=== PATIENT | male | born 1945 | race African-American/Black ===

== ENCOUNTER → 2017-06-19 | Outpatient (CLI) | payer MEDICARE, MEDICAID ==
[~2017-06-19] MED LIST: BENA20TA77 GT; FOLI-43 PO; FURO40TA5 PO; SITA100T11 PO
[2017-06-19 11:38] LABS: HEMATOCRIT. 28.8 % (42.0-52.0); HEMOGLOBIN. 9.3 g/dL (14.0-18.0); MEAN CORPUSCULAR VOLUME 89.2 fL (80.0-94.0); MEAN PLATELET VOLUME 8.4 fl (7.4-10.4); PLATELET 217 x1000/uL (130-400); RED BLOOD CELL COUNT 3.22 mill/uL (4.7-6.1); RED CELL DISTRIBUTION WIDTH 15.8 % (11.6-14.6)
[2017-06-19 11:44] LABS: INR 1.1; PARTIAL THROMBOPLASTIN TIME 27.8 sec (23.4-31.0)
[2017-06-19 11:53] LABS: PLATELET ESTIMATE NORMAL
== END | disposition home or self-care (01) ==
LOC: LAB 11:11
PROVIDERS: ATTEND Internal Medicine
DX: R91.8 Other nonspecific abnormal finding of lung field (principal); K76.9 Liver disease, unspecified; R79.89 Other specified abnormal findings of blood chemistry
CPT/HCPCS: 36415; 85025; 85610; 85730

== ENCOUNTER 2017-06-25 09:30 | Day surgery (SDC) | payer MEDICARE, MEDICAID ==
[~2017-06-25] VITALS: Ht 170.2 cm; Wt 109.3 kg
[2017-06-25] VITALS (12 sets, daily range): BP systolic 115–158; BP diastolic 59–91
[2017-06-25] MEDS ORDERED: FENTANYL CITRATE/PF 50MCG/ML 2ML VIAL ONE (10:13)
[2017-06-25] MEDS ORDERED: SODIUM BICARBONATE 4% (2.4MEQ) 5ML VIAL IV ONE (10:28)
[2017-06-25] MEDS ORDERED: LIDOCAINE HCL/PF 1% 10 MG/ML 5ML VIAL ONE ×2 (10:29→10:30)
[2017-06-25] MEDS ORDERED: BENA20TA77 GT (10:47)
[2017-06-25] MEDS ORDERED: FOLI-43 PO (10:47)
[2017-06-25] MEDS ORDERED: FURO40TA5 PO (10:47)
[2017-06-25] MEDS ORDERED: SITA100T11 PO (10:47)
[2017-06-25] MEDS ORDERED: HYDROCODONE/ACETAMINOPHEN 5/325MG TABLET PO PRN (11:30)
[2017-06-25] MEDS ORDERED: FENTANYL CITRATE/PF 50MCG/ML 2ML VIAL IV ONE (11:30)
[2017-06-25] MEDS ORDERED: FENTANYL CITRATE/PF 50MCG/ML 2ML VIAL IV SCH (12:30)
== END 2017-06-25 15:15 | disposition home or self-care (01) ==
LOC: RAD 09:30
PROVIDERS: ATTEND Internal Medicine
DX: J85.0 Gangrene and necrosis of lung (principal); J98.4 Other disorders of lung; R91.8 Other nonspecific abnormal finding of lung field; M10.9 Gout, unspecified; J44.9 Chronic obstructive pulmonary disease, unspecified; I10 Essential (primary) hypertension; Z72.0 Tobacco use; E66.01 Morbid (severe) obesity due to excess calories; E11.9 Type 2 diabetes mellitus without complications; F11.20 Opioid dependence, uncomplicated; I73.89 Other specified peripheral vascular diseases
CPT/HCPCS: 32405; 71045; 77012; 82962; 88305; J3010; J3490; J7050